=== PATIENT | male | born 2005 | race Caucasian/White ===

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

== ENCOUNTER 2025-03-31 14:40 | Emergency (ER) | payer OTHER, SELFPAY ==
[2025-03-31 15:02] VITALS: BP 135/64; PULSE 69; RESP 16; TEMP 36.3; O2SAT 100
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
== END 2025-03-31 15:16 | disposition home or self-care (01) ==
PROVIDERS: Emergency Provider Nurse Practitioner Family
DX: S40.022A Contusion of left upper arm, initial encounter (principal); V49.60XA Unspecified car occupant injured in collision with unspecified motor vehicles in traffic accident, initial encounter
CPT/HCPCS: 99213; G0463